=== PATIENT | male | born 1970 | race Caucasian/White ===

== ENCOUNTER 2018-03-22 09:21 | Emergency (ER) | payer BC ==
[~2018-03-22] VITALS: Ht 185.4 cm; Wt 136.4 kg
[~2018-03-22 09:21] MED LIST: ADVAIR HFA120 INHALA IH; ALBUTEROL MDI; Advair HFA 115/21 IH; CARAFATE100 MG/ML PO; CYMBALTA60 MG PO; Cymbalta PO; LEVAQUIN500 MG PO; LISINOPRIL10 MG PO; Levaquin PO; Medrol Dosepak PO; NAPROXEN500 MG PO; PREDNISONE20 MG PO; VENTOLIN HFA18 GM IH; ZANTAC150 MG PO; ZITHROMAX Z-PA250 MG PO; Zestril,Prinivil PO
[2018-03-22] MEDS ORDERED: KEFLEX500 MG PO (10:51)
[2018-03-22 11:13] LABS: HEMATOCRIT 41.5 % (38.0-50.0); HEMOGLOBIN 14.4 G/DL (12.5-16.6); MCH 34.4 PG (29.0-34.0); MCHC 34.7 G/DL (30.0-36.0); MCV 99.3 FL (86-99); PLATELET COUNT 263 K/uL (156-360); RBC DIS.WIDTH-CV 13.5 % (11.8-14.6); RBC DIS.WIDTH-SD 49.1 % (39-53); RED BLOOD COUNT 4.18 M/uL (4.00-5.50); WHITE BLOOD COUNT 16.6 K/uL (4.1-10.2)
[2018-03-22 11:25] LABS: ALBUMIN 3.5 g/dL (3.2-4.8); CHLORIDE 101 mEq/L (99-109); POTASSIUM 4.3 mEq/L (3.7-5.4); SODIUM 134 mEq/L (136-147)
[2018-03-22 11:28] LABS: GLUCOSE 87 mg/dL (70-99); TOTAL PROTEIN 6.1 g/dL (6.4-8.3)
[2018-03-22 11:30] LABS: TOTAL BILIRUBIN 0.7 mg/dL (0.0-1.0)
[2018-03-22 11:31] LABS: ALKALINE PHOSPHATASE 64 IU/L (3-129); CREATININE 0.5 mg/dL (0.6-1.3); GFR ESTIMATE (CALCULATED) > 59 mL/min/ (58.99-99999)
[2018-03-22 11:32] LABS: UREA NITROGEN (BUN) 11 mg/dL (9-23)
[2018-03-22 11:33] LABS: AST (GOT) 16 IU/L (2-34)
[2018-03-22 11:34] LABS: ALT (GPT) 34 IU/L (3-49)
[2018-03-22 12:53] VITALS: BP 129/93
== END 2018-03-22 12:53 | disposition home or self-care (01) ==
LOC: EME 09:21
PROVIDERS: Emergency Medicine Emergency Medical Services
DX: L03.116 Cellulitis of left lower limb (principal); I87.2 Venous insufficiency (chronic) (peripheral); I77.1 Stricture of artery; M70.71 Other bursitis of hip, right hip; I10 Essential (primary) hypertension; F17.200 Nicotine dependence, unspecified, uncomplicated; F32.9 Major depressive disorder, single episode, unspecified; J44.9 Chronic obstructive pulmonary disease, unspecified
CPT/HCPCS: 80053; 83880; 85027; 85610; 85730; 99281; 99284